=== PATIENT | male | born 1960 | race Caucasian/White ===

== ENCOUNTER → 2016-09-29 | Outpatient (CLI) | payer OTHER | END | disposition home or self-care (01) | LOC: PCVCIMAG 15:08 | PROVIDERS: ATTEND Internal Medicine Cardiovascular Disease | DX: I48.91 Unspecified atrial fibrillation (principal); I10 Essential (primary) hypertension; E78.5 Hyperlipidemia, unspecified; G47.30 Sleep apnea, unspecified; R07.9 Chest pain, unspecified | CPT/HCPCS: 93005; 93306 ==

== ENCOUNTER → 2017-02-09 | Outpatient (CLI) | payer OTHER ==
--- NOTE | 2017-02-09 12:26 | PCVCIMAG ---
APPROVED REPORT Exam: Stress Echocardiogram Indication: Paroxysmal Atrial Fibrillation, Hyperlipidemia, Hypertension Stress Nurse: Jeanne Brown RN Status: routine HR: 57 bpm Rhythm: NSR Medical History Medical History: Paroxysmal Atrial Fibrillation Medications: Flecainide Procedure The patient underwent an Exercise Stress Test using the Leon Protocol. Blood pressure, heart rate, and EKG were monitored. An Echocardiogram was performed by orthodontic laboratory technician in four stages in quad fashion. At peak stress, four selected images were obtained and placed side by side with resting images for comparison. Stress Test Details Stress Test: Exercise stress testing was performed using a Leon protocol. HR Resting HR: 57 bpmMax Heart Rate (APMHR): 165 bpm Max HR Achieved: 146 bpmTarget HR (85% APMHR): 140 bpm % of APMHR: 88 Recovery HR: 78 bpm HR response to stress: Normal HR response to stress BP Resting BP: 114/68 mmHg Max BP: 188/72 mmHg Recovery BP: 138/82 mmHg ECG Resting ECG: Sinus Rhythm Stress ECG: Sinus Rhythm ST Change: Normal Arrhythmia: None Recovery ECG: Sinus Rhythm Recovery Arrhythmia: None Clinical Reason for Termination: Maximal effort, Dyspnea Stress Symptoms: Dyspnea Exercise duration: 12 min 50 sec Highest Stage Achieved: Stage 5: 5.0 mph at 18% grade. Exercise capacity: 16.5 METs Overall Exercise Capacity for Age: Good Pre-Stress Echo The resting Echocardiogram showed normal left ventricular contractility with an estimated Ejection Fraction of about >55%. Normal wall motion in all segments on baseline images. Post-Stress Echo The stress Echocardiogram showed normal left ventricular contractility with an estimated Ejection Fraction of about 65%. Normal augmentation of wall motion in all segments on post stress images. Clinical No clinical or ECG evidence for ischemia. Conclusion Clinical Response: Non-ischemic Exercise Capacity: Superior Stress ECG Response: Non-ischemic Stress Echo Images: Non-ischemic Mild Aortic insufficiency with mild ascending aortic aneurysm of 4.2 cm. Aneurysmal atrial septum without evidence of PFO. Other Information Study Quality: Adequate <Conclusion> Mild Aortic insufficiency with mild ascending aortic aneurysm of 4.2 cm. Aneurysmal atrial septum without evidence of PFO.
== END | disposition home or self-care (01) ==
LOC: PCVCIMAG 09:58
PROVIDERS: ATTEND Internal Medicine Cardiovascular Disease
DX: I48.0 Paroxysmal atrial fibrillation (principal); E78.5 Hyperlipidemia, unspecified; I35.1 Nonrheumatic aortic (valve) insufficiency; I71.2 Thoracic aortic aneurysm, without rupture; I10 Essential (primary) hypertension; I25.10 Atherosclerotic heart disease of native coronary artery without angina pectoris; Z79.82 Long term (current) use of aspirin
CPT/HCPCS: 93325; 93351

== ENCOUNTER → 2018-07-07 | Outpatient (CLI) | payer OTHER ==
--- NOTE | 2018-07-07 12:39 | PCVCIMAG ---
APPROVED REPORT Study performed: 07/07/2018 11:15:08 Exam: Stress Echocardiogram Indication: parox a fib, dyspnea, HTN, ascending aortic aneruysm Patient Location: Echo lab Stress Nurse: Jeanne Brown RN Status: routine Ht: 5 ft 10 in HR: 67 bpm BP: 124/72 mmHg Rhythm: NSR Procedure The patient underwent an Exercise Stress Test using the Leon Protocol. Blood pressure, heart rate, and EKG were monitored. An Echocardiogram was performed by robotic maintenance technician in four stages in quad fashion. At peak stress, four selected images were obtained and placed side by side with resting images for comparison. Stress Test Details Stress Test: Exercise stress testing was performed using a Leon protocol. HR Resting HR: 67 bpmMax Heart Rate (APMHR): 164 bpm Max HR Achieved: 153 bpmTarget HR (85% APMHR): 139 bpm % of APMHR: 93 Recovery HR: 87 bpm HR response to stress: Normal HR response to stress BP Resting BP: 124/72 mmHg Max BP: 180/78 mmHg Recovery BP: 132/80 mmHg BP response to stress: Normal blood pressure response to stress. ECG Resting ECG: Sinus Rhythm Stress ECG: Sinus Rhythm ST Change: Normal Arrhythmia: None Recovery ECG: Sinus Rhythm Recovery ST Change: Normal Recovery Arrhythmia: None Clinical Reason for Termination: Maximal effort Stress Symptoms: Dyspnea Exercise duration: 12 min sec Highest Stage Achieved: Stage 4: 4.2 mph at 16% grade. Exercise capacity: 13.7 METs Overall Exercise Capacity for Age: Normal Scale: Active Angina Score: None Pre-Stress Echo The resting Echocardiogram showed normal left ventricular contractility with an estimated Ejection Fraction of about >55%. Normal wall motion in all segments on baseline images. Post-Stress Echo The stress Echocardiogram showed normal left ventricular contractility with an estimated Ejection Fraction of about 65%. Normal augmentation of wall motion in all segments on post stress images. Clinical No clinical or ECG evidence for ischemia. Conclusion Clinical Response: Non-ischemic Exercise Capacity: Average Stress ECG Response: Non-ischemic Stress Echo Images: Non-ischemic The left ventricle is normal in size and wall thickness in both the rest and stress images. Other Information Study Quality: Adequate <Conclusion> The left ventricle is normal in size and wall thickness in both the rest and stress images.
== END | disposition home or self-care (01) ==
LOC: PCVCIMAG 11:23
PROVIDERS: ATTEND Internal Medicine Cardiovascular Disease
DX: I48.91 Unspecified atrial fibrillation (principal); I10 Essential (primary) hypertension; E78.5 Hyperlipidemia, unspecified; G47.30 Sleep apnea, unspecified; R06.00 Dyspnea, unspecified; I77.819 Aortic ectasia, unspecified site
CPT/HCPCS: 93325; 93351